=== PATIENT | male | born 1950 | race Caucasian/White ===

== ENCOUNTER 2016-06-14 07:53 | Emergency (ER) | payer OTHER ==
[2016-06-14 08:19] VITALS: BP 136/86; PULSE 63; RESP 16; TEMP 97.8; O2SAT 96
--- NOTE | 2016-06-14 08:57 | UCPHY ---
H & P Time Seen by Provider: 06/14/16 08:46 Patient Type: Established HPI/ROS: This patient presents with a chief complaint of right lower back pain which he localizes to the area of the SI joint. The symptoms began during the night and were quite severe although currently the pain is much less. The pain radiated down the posterior aspect of the right thigh into the mid calf. He denies any numbness, tingling or weakness. The pain was definitely worse with movement. Denies fever, abdominal pain, nausea or vomiting. He admits to frequency of urination which has not changed since this pain began and he attributes this to an enlarged prostate. He did not experience dysuria or hematuria. He says that he has had this in the past but that it has resolved after several days. His work requires him to bend, lift, lean and twist. Smoking Status: Never smoked Physical Exam: GENERAL: Well-appearing, well-nourished and in no acute distress. HEAD: Atraumatic, normocephalic. without murmurs, rubs or gallops. ABDOMEN: Soft, nontender, No guarding, no rebound. No masses appreciated. EXTREMITIES: Normal range of motion, no pitting or edema. No clubbing or cyanosis. NEUROLOGICAL: Cranial nerves II through XII grossly intact. Normal speech, normal gait. PSYCH: Normal mood, normal affect. SKIN: Warm, dry, normal turgor, no visible rashes or lesions. Back: There is very mild tenderness over the SI joint on the right but no tenderness in the flank, the left back, the sciatic notch or the sciatic nerve. Straight leg raising on the right causes only back pain and is negative on the left. Deep tendon reflexes are brisk and symmetric. Motor and sensory functions are normal. Peripheral pulses are symmetric. Constitutional: Initial Vital Signs Temperature (C) 36.6 C 06/14/16 08:10 Heart Rate 63 06/14/16 08:10 Respiratory Rate 16 06/14/16 08:10 Blood Pressure 136/86 H 06/14/16 08:10 O2 Sat (%) 96 06/14/16 08:10 O2 Delivery Mode Room Air Allergies/Adverse Reactions: Penicillins Allergy (Intermediate, Verified 06/14/16 08:14) Home Medications: Medication Instructions Recorded Aspirin 81mg (OTC) 04/13/15 Lipitor 04/13/15 CYCLOBENZAPRINE HCL [Flexeril] 5 mg PO TIDPRN PRN #15 tab 06/14/16 Medical Decision Making ED Course/Re-evaluation: The patient requested a urinalysis which was normal. Differential Diagnosis: At this time I find no objective evidence of lumbar radiculopathy although this is still a possibility. Given his recent improvement and lack of any objective evidence I think this is unlikely. There is nothing to suggest an intra- abdominal source for his pain nor a cause. - Data Points Laboratory Results: 06/14/16 09:00 Urine Color YELLOW Urine Appearance CLEAR Urine pH 5.5 (5.0-7.5) Ur Specific [place] 1.010 (1.002-1.030) Urine Protein NEGATIVE (NEGATIVE) Urine Ketones NEGATIVE (NEGATIVE) Urine Blood NEGATIVE (NEGATIVE) Urine Nitrate NEGATIVE (NEGATIVE) Urine Bilirubin NEGATIVE (NEGATIVE) Urine Urobilinogen 0.2 EU (0.2-1.0) Ur Leukocyte Esterase NEGATIVE (NEGATIVE) Urine Glucose NEGATIVE (NEGATIVE) Departure - Departure Disposition: Home, Routine, Self-Care Clinical Impression: Back pain with sciatica Condition: Good Instructions: Acute Low Back Pain (ED), Sciatica (ED) Additional Instructions: If your symptoms have not resolved in 7 days you should follow-up with her primary care physician. Avoid painful activities. Limit your activities today and then let pain be Your guide. Adult Pain & Fever Control: We recommend Acetaminophen (Tylenol) and Ibuprofen (Motrin, Advil) for pain and fever control. When fever is high or pain severe, both drugs can be used at the same time, but at different intervals. Please note the time differences. Your dose is: Acetaminophen [650]mg every 4 to 6 hours ibuprofen [600]mg every [6] hours with food OR naproxen Sodium (Aleve) [440]mg every 12 hours. Note: do not take Acetaminophen with Hydrocodone (Vicodin, Lortab) or Oxycodone (Percocet). These medications also contain Acetaminophen. No more than 3000 mg of Acetaminophen should be taken in 24 hours (for an adult) . The maximal dose of ibuprofen that it is safe in a 24-hour period is 2400 mg. You may take 400 mg every 4 hours, 600 mg every 6 hours or 800 mg every 8 hours safely. Referrals: Javed Unger MD [Primary Care Provider] - As per Instructions Prescriptions: CYCLOBENZAPRINE HCL [Flexeril] 5 mg PO TIDPRN PRN #15 tab PRN Reason: back pain - PQRS PQRS Measurement: Not applicable
[2016-06-14 09:08] LABS: COLOR YELLOW; LEUKOCYTE ESTERASE,URINE NEGATIVE (NEGATIVE); NITRITE,URINE NEGATIVE (NEGATIVE); PH,URINE 5.5 (5.0-7.5)
== END 2016-06-14 09:19 | disposition home or self-care (01) ==
LOC: CED 07:53
DX: M54.41 Lumbago with sciatica, right side (principal)
CPT/HCPCS: 81003-PO; 99214-PO; G0463-PO

== ENCOUNTER → 2016-06-17 | Outpatient (CLI) | payer OTHER ==
--- NOTE | 2016-06-17 20:27 | MR ---
MRI of the Lumbar Spine (Without Contrast) Clinical Indications: Back pain and lower extremity radiculopathy. Technique: Sagittal and axial T1 and T2 MR sequences of the lumbar spine, without contrast. Findings T11-T12: Disk desiccation, without disk prolapse or neural impingement. T12-L1: No disk herniation or stenosis. L1-L2: Disk desiccation and diffuse annular bulging, contributing to mild acquired central canal gia nosis. Right neural foramina is moderately stenotic. Left neural foramina is patent.. L2-L3: Disk desiccation and mild diffuse annular bulging, contributing to mild to moderate acquired central canal stenosis. Left neural foramina is moderately stenotic. Right neural foramina is paten t. L3-L4: Disk desiccation and annular bulging, contributing to moderate to advanced acquired central c anal stenosis. Foramina are moderately stenotic bilaterally secondary to annular bulging.. L4-L5: Disk desiccation and mild annular bulging, without discrete disk prolapse or neural impingeme nt. L5-S1: Disk desiccation and diffuse annular bulging, without discrete disk prolapse. Moderate bilat eral facet degenerative arthropathy.. Impressions 1. Multilevel lumbar degenerative disk disease, as detailed by level above. Findings are most prono unced at L3-L4 where there is acquired central canal stenosis along with bilateral moderate neural fo raminal stenosis. 2. Other level findings, as above.
== END ==
LOC: FIMAGING 18:34
PROVIDERS: ATTEND Internal Medicine
DX: M51.36 Other intervertebral disc degeneration, lumbar region (principal); M48.06 Spinal stenosis, lumbar region; M99.73 Connective tissue and disc stenosis of intervertebral foramina of lumbar region; M12.88 Other specific arthropathies, not elsewhere classified, other specified site